=== PATIENT | male | born 1975 | race American Indian/Alaskan Native ===

== ENCOUNTER 2020-08-30 16:07 | Emergency (ER) | payer BC ==
[2020-08-30 17:56] VITALS: BP 118/75
--- NOTE | 2020-08-30 20:10 | Emergency Department Report ---
ED Lower Extremity HPI - General Chief Complaint: Extremity Injury, Upper Stated Complaint: LT LEG PAIN Time Seen by Provider: 08/30/20 19:32 Source: patient Mode of arrival: Ambulatory Limitations: No Limitations - History of Present Illness Initial Comments: 45-year-old [place] male presents emerged department complaining of left ear pain which started after he worked out in the gym doing some squats and went to work doing a lot of heavy lifting pushing and pulling and developed pain to his anterior lateral left hip region. There is no bruising or discoloration. No numbness or tingling, no loss of bowel bladder, no saddle paresthesia. MD Complaint: hip injury -: Gradual Place: home - Related Data Previous Rx's Medication Instructions Recorded Last Taken Type Ketorolac [Toradol] 10 mg PO Q6H PRN #14 tablet 08/30/20 Unknown Rx methOCARBAMOL [Robaxin TAB] 750 mg PO Q8H #21 tablet 08/30/20 Unknown Rx Allergies Allergy/AdvReac Type Severity Reaction Status Date / Time No Known Allergies Allergy Unverified 08/30/20 17:56 ED Review of Systems ROS: Stated complaint: LT LEG PAIN Other details as noted in HPI Comment: All other systems reviewed and negative ED Past Medical Hx - Medications Home Medications: Home Medications Medication Instructions Recorded Confirmed Last Taken Type Ketorolac [Toradol] 10 mg PO Q6H PRN #14 tablet 08/30/20 Unknown Rx methOCARBAMOL [Robaxin TAB] 750 mg PO Q8H #21 tablet 08/30/20 Unknown Rx ED Physical Exam - General Limitations: No Limitations General appearance: alert, in no apparent distress - Head Head exam: Present: atraumatic, normocephalic - Eye Eye exam: Present: normal appearance - ENT ENT exam: Present: mucous membranes moist - Neck Neck exam: Present: normal inspection - Respiratory Respiratory exam: Present: normal lung sounds bilaterally. Absent: respiratory distress - Cardiovascular Cardiovascular Exam: Present: regular rate, normal rhythm. Absent: systolic murmur, diastolic murmur, rubs, gallop - GI/Abdominal GI/Abdominal exam: Present: soft, normal bowel sounds - Rectal Rectal exam: Present: deferred - Extremities Exam Extremities exam: Present: normal inspection, tenderness. Absent: joint swelling, calf tenderness - Expanded Lower Extremity Exam Left Hip exam: Present: tenderness, internal rotation (Pain with internal rotation.). Absent: swelling, abrasion, deformity, crepidus, dislocation, pelvic stability Upper Leg exam: Present: normal inspection Knee exam: Present: normal inspection Lower Leg exam: Present: normal inspection Ankle exam: Present: normal inspection Foot/Toe exam: Present: normal inspection - Back Exam Back exam: Present: normal inspection - Neurological Exam Neurological exam: Present: alert, oriented X3 - Psychiatric Psychiatric exam: Present: normal affect, normal mood - Skin Skin exam: Present: warm, dry, intact, normal color. Absent: rash ED Course Vital Signs 08/30/20 17:55 Temperature 98.8 F Pulse Rate 78 Respiratory 18 Rate Blood Pressure 118/75 [Right] O2 Sat by Pulse 97 Oximetry Critical care attestation.: If time is entered above; I have spent that time in minutes in the direct care of this critically ill patient, excluding procedure time. ED Disposition Clinical Impression: Left hip pain Disposition: DC-01 TO HOME OR SELFCARE Is pt being admited?: No Does the pt Need Aspirin: No Condition: Stable Instructions: Hip Pain, Musculoskeletal Pain Prescriptions: methOCARBAMOL [Robaxin TAB] 750 mg PO Q8H #21 tablet Ketorolac [Toradol] 10 mg PO Q6H PRN #14 tablet PRN Reason: Pain Referrals: ADAM LEVIN MD [Staff Physician] - 3-5 Days
== END 2020-08-30 20:58 | disposition home or self-care (01) ==
LOC: ED 16:07
DX: M25.552 Pain in left hip (principal); H92.02 Otalgia, left ear; Z79.899 Other long term (current) drug therapy
CPT/HCPCS: 99281